=== PATIENT | male | born 1990 | race Caucasian/White ===

== ENCOUNTER → 2024-12-30 | Outpatient (CLI) | payer OTHER ==
[~2024-12-30] MED LIST: RXCLIN PO
[2024-12-31 12:06] LABS: Stool Occult Bld Immuno 1 Negative (NEGATIVE)
[2025-01-02 21:55] LABS: PANCREATIC ELASTASE,FECAL 655 ug/g (>=100)
[2025-01-02 21:57] LABS: CALPROTECTIN,FECAL 13 ug/g (<=49)
== END | disposition home or self-care (01) ==
LOC: LAB SHORT 06:00 → LAB 06:00
PROVIDERS: Student in an Organized Health Care Education/Training Program
DX: K52.9 Noninfective gastroenteritis and colitis, unspecified (principal)
CPT/HCPCS: 82274; 82653; 83993